=== PATIENT | female | born 1960 | race Caucasian/White ===

== ENCOUNTER 2017-02-04 09:17 | Outpatient (CLI) | payer OTHER, BC ==
[~2017-02-04 09:17] MED LIST: FLUO-119 PO; INSU100V11 SQ; LEVO100T9 PO; LISI-209 PO; METF-305 PO; OMEG1CAP24 PO; OMEP40CA33 PO; PRAV80TA PO; RIVA15TA PO; SITA100T7 PO
== END 2017-02-04 19:05 | disposition home or self-care (01) ==
LOC: SMA 09:17
PROVIDERS: ATTEND Physician Assistant Medical
DX: Z12.31 Encounter for screening mammogram for malignant neoplasm of breast (principal)
CPT/HCPCS: 77067; G0202

== ENCOUNTER 2020-06-06 10:46 | Outpatient (CLI) | payer OTHER, BC ==
[~2020-06-06 10:46] MED LIST changes: -METF-305 PO; +METF-381 PO; +SITA100T11 PO; -SITA100T7 PO
== END 2020-06-06 20:39 | disposition home or self-care (01) ==
LOC: SMA 10:46
PROVIDERS: ATTEND Family Medicine
DX: Z12.31 Encounter for screening mammogram for malignant neoplasm of breast (principal)
CPT/HCPCS: 77067

== ENCOUNTER 2021-11-06 15:10 | Outpatient (CLI) | payer BC, OTHER ==
[~2021-11-06 15:10] MED LIST changes: -FLUO-119 PO; +FLUO20CA42 PO; +OMEP40CA20 PO; -OMEP40CA33 PO
== END 2021-11-06 19:42 | disposition home or self-care (01) ==
LOC: SMA 15:10
PROVIDERS: ATTEND Family Medicine
DX: Z12.31 Encounter for screening mammogram for malignant neoplasm of breast (principal); N64.89 Other specified disorders of breast
CPT/HCPCS: 77067